=== PATIENT | male | born 1980 | race Caucasian/White ===

== ENCOUNTER 2018-09-15 04:43 | Emergency (ER) | payer OTHER ==
[~2018-09-15] VITALS: Ht 177.8 cm; Wt 96.6 kg
[~2018-09-15 04:43] MED LIST: FLUO20 PO; OXYACE5T PO; SILSUL1TC TOP
[2018-09-15] MEDS ORDERED: ESCI20 PO (04:58)
[2018-09-15] MEDS ORDERED: MONT10T PO (04:58)
[2018-09-15] MEDS ORDERED: ALPR.25 PO (04:58)
[2018-09-15] MEDS ORDERED: ALBU90OI6 INH (04:58)
== END 2018-09-15 05:56 | disposition home or self-care (01) ==
LOC: ER 04:43
DX: S41.112A Laceration without foreign body of left upper arm, initial encounter (principal); X78.8XXA Intentional self-harm by other sharp object, initial encounter; Z79.899 Other long term (current) drug therapy; Z87.891 Personal history of nicotine dependence
CPT/HCPCS: 12005; 90471; 90714; 99282-25